=== PATIENT | female | born 1985 | race African-American/Black ===

== ENCOUNTER 2017-10-03 19:56 | Emergency (ER) | payer OTHER ==
[2017-10-03 20:30] VITALS: BP 113/66; PULSE 87; TEMP 98.5; BMI 26.6
--- NOTE | 2017-10-03 20:36 | PDOC ---
Rapid Medical Evaluation Time Seen by Provider: 10/03/17 20:26 Medical Evaluation: 10/03/17 20:27 The patient presents with a chief complaint of: [Cough, Shortness of breathe, chest pain on tuesday, headache since Tuesday + nasal congestion. I have performed a brief in-person evaluation of this patient. Pertinent physical exam findings: vss, [+ nasal congestion, Lungs clear, HRR. ] I have ordered the following: [Rapid influenza, urine ] The patient will proceed to the ED for further evaluation. 10/03/17 20:31 Discharge Disposition - Diagnosis Nasal congestion - Referrals - Patient Instructions - Post Discharge Activity
--- NOTE | 2017-10-03 20:48 | PDOC ---
History of Present Illness - General Chief Complaint: Shortness of Breath Stated Complaint: S.O.B Time Seen by Provider: 10/03/17 20:26 History Source: Patient - History of Present Illness Timing/Duration: reports: other Associated Symptoms: reports: cough, nasal congestion, shortness of breath. denies: earache, fever/chills, headache, muscle aches, sore throat, wheezing Past History - Past Medical History Allergies/Adverse Reactions: Allergies Allergy/AdvReac Type Severity Reaction Status Date / Time No Known Allergies Allergy Verified 10/03/17 20:27 Home Medications: Ambulatory Orders NK [No Known Home Medication] 10/03/17 COPD: No - Suicide/Smoking/Psychosocial Hx Smoking History: Never smoked Review of Systems - Review of Systems Constitutional: No: Fever Respiratory: Yes: Cough, Shortness of Breath. No: Wheezing Cardiac (ROS): Yes: Chest Pain *Physical Exam - Vital Signs Last Vital Signs Temp Pulse Resp BP Pulse Ox 98.5 F 87 18 113/66 99 10/03/17 20:27 10/03/17 20:27 10/03/17 20:27 10/03/17 20:27 10/03/17 20:27 - Physical Exam General Appearance: Yes: Appropriately Dressed. No: Apparent Distress HEENT: positive: Normal ENT Inspection, Normal Voice. negative: Scleral Icterus (R), Scleral Icterus (L) Neck: positive: Supple. negative: Lymphadenopathy (R), Lymphadenopathy (L) Respiratory/Chest: positive: Lungs Clear, Normal Breath Sounds. negative: Respiratory Distress Cardiovascular: positive: Regular Rate, S1, S2 Integumentary: positive: Dry, Warm Neurologic: positive: Fully Oriented, Alert, Normal Mood/Affect Medical Decision Making - Medical Decision Making 10/03/17 20:46 32-year-old female, no significant history nonsmoker, here with dry cough with pleuritic chest pain and possible shortness of breath 3 days. No hemoptysis. No recent travel or sick contacts. No history of pneumonia. Patient well- appearing and stable with unremarkable exam. Suspect most likely viral URI. Chest x-ray rule out pneumonia given possible short of breath 10/03/17 22:11 Chest x-ray negative. Patient does not wish to wait for flu test (taking prolonged time as machine down per lab staff). Pt will call ED for results 10/03/17 22:12 *DC/Admit/Observation/Transfer Diagnosis at time of Disposition: URI (upper respiratory infection) Qualifiers: URI type: unspecified viral URI Qualified Code(s): J06.9 - Acute upper respiratory infection, unspecified - Discharge Dispostion Disposition: HOME Condition at time of disposition: Good - Referrals - Patient Instructions Printed Discharge Instructions: DI for Viral Upper Respiratory Infection -- Adult Additional Instructions: Chest x-ray did not show a pneumonia. Please contact ED at [phone] for flu test later on tonight or in the a.m. Rest, maintain adequate hydration and take Motrin and/or Tylenol for pain and/ or fever - Post Discharge Activity
== END 2017-10-03 22:13 | disposition home or self-care (01) ==
LOC: JERFT 19:56
DX: J06.9 Acute upper respiratory infection, unspecified (principal); B97.89 Other viral agents as the cause of diseases classified elsewhere; R51 Headache
CPT/HCPCS: 71046-TC; 84703; 87804; 99281-25